=== PATIENT | male | born 1975 | race Two or more races ===

== ENCOUNTER 2023-07-05 17:59 | Emergency (ER) | payer BC ==
[~2023-07-05] VITALS: Ht 175.3 cm; Wt 77.1 kg
== END 2023-07-05 20:52 | disposition home or self-care (01) ==
LOC: ER 17:59
DX: S40.012A Contusion of left shoulder, initial encounter (principal); W10.9XXA Fall (on) (from) unspecified stairs and steps, initial encounter; Y93.89 Activity, other specified; Y92.59 Other trade areas as the place of occurrence of the external cause; Y99.9 Unspecified external cause status